=== PATIENT | female | born 1955 | race Caucasian/White ===

== ENCOUNTER → 2017-08-14 | Outpatient (CLI) | payer BC ==
[~2017-08-14] MED LIST: ACYC800T99 PO; CALC500T42 PO; CALCIUM 500+VI1 EACH PO; CET10 PO; CHOL100060 PO; COLE3.756 PO; DOCU-416 PO; FLAX100042 PO; FLUT16SP20 NS; HCTZ25 PO; KETO5DRO OP; LOS50 PO; LOSA50TA68 PO; MULT-820 PO; OMEP-218 PO; OXYC-854 PO; POTA-23 PO; POTA-28 PO; POTA99TA13 PO
== END ==
LOC: RAD 11:20
PROVIDERS: ATTEND Nurse Practitioner Family
DX: Z13.820 Encounter for screening for osteoporosis (principal)

== ENCOUNTER → 2017-09-19 | Outpatient (CLI) | payer BC | LOC: US 02:39 | PROVIDERS: ATTEND Nurse Practitioner Family | DX: I51.7 Cardiomegaly (principal); I07.1 Rheumatic tricuspid insufficiency; I37.1 Nonrheumatic pulmonary valve insufficiency | CPT/HCPCS: 93306 ==

== ENCOUNTER → 2018-08-22 | Outpatient (CLI) | payer BC ==
[~2018-08-22] MED LIST changes: +ESTR42.5 PV
== END ==
LOC: LAB 11:16
PROVIDERS: ATTEND Obstetrics & Gynecology
DX: N89.8 Other specified noninflammatory disorders of vagina (principal)
CPT/HCPCS: 87210